=== PATIENT | male | born 1980 | race African-American/Black ===

== ENCOUNTER 2016-06-08 19:32 | Emergency (ER) | payer OTHER ==
[~2016-06-08] VITALS: Ht 185.4 cm; Wt 104.3 kg
[~2016-06-08 19:32] MED LIST: BACTRIM DS TAB1 EAC1 ORAL; HYDROCODON-ACE1 EA15 ORAL; IBUPROFEN600 MG ORAL; NORCO 5-325 TA1 EAC1 ORAL
[2016-06-08] MEDS ORDERED: IBUPROFEN600 MG ORAL (20:29)
[2016-06-08] MEDS ORDERED: BACTRIM DS TAB1 EAC1 ORAL (20:29)
[2016-06-08 20:39] VITALS: BP 107/78
--- NOTE | 2016-06-08 21:04 | Emergency Room Report ---
History of Present Illness General Chief Complaint: General Complaint Source: Patient Present Illness HPI The patient is a 35 old presenting with left knee pain which began yesterday. The patient noticed redness and swelling around the knee due to unknown cause. The patient denies prior injury to the knee. The pain is described as a 10 out of 10 dull ache and does not radiate. The patient states that he noticed a white discharge from the area after squeezing it. The patient denies F, C, N, V , numbness/tingling, NDIAYE, dizziness, difficulty ambulating. Allergies: Coded Allergies: No Known Allergies (Unverified , 02/26/14) Patient History Past Medical History: see triage record Pertinent Family History: none Reviewed Nursing Documentation: PMH: Agreed, PSxH: Agreed Nursing Documentation-PMH Past Medical History: No History, Except For Review of Systems All Other Systems: negative except mentioned in HPI Physical Exam Vital Signs Date Time Temp Pulse Resp B/P Pulse Ox O2 Delivery O2 Flow Rate FiO2 06/08/16 20:11 98.1 86 18 107/78 98 Room Air Sp02 EP Interpretation: reviewed, normal General Appearance: no apparent distress, alert, GCS 15, non-toxic Head: normocephalic, atraumatic Eyes: bilateral eye PERRL, bilateral eye normal inspection ENT: hearing grossly normal, normal pharynx, no angioedema, normal voice Neck: full range of motion, supple/symm/no masses Musculoskeletal: back normal, digits/nails normal, normal range of motion, no calf tenderness, pelvis stable, tender - TTP over soft tissue superior to L knee Neurologic: alert, oriented x3, responsive, motor strength/tone normal, sensory intact, speech normal Psychiatric: judgement/insight normal, memory normal, mood/affect normal, no suicidal/homicidal ideation Skin: well hydrated, other - There is a 3 cm in diameter erythematous region superior to left knee. There is a central scab. No fluctuance. Hot to the touch and tender Lymphatic: no adenopathy Medical Decision Making PA Attestation Dr. Agarwal is my supervising physician. Patient management was discussed with my supervising physician Diagnostic Impression: Primary Impression: Cellulitis ER Course The patient is a 35 old presenting with left knee pain which began yesterday. Ddx considered include but not limited to insect bite, contact dermatitis, eczema, cellulitis PE: vitals WNL. Afebrile NAD. There is a 3 cm in diameter erythematous region superior to left knee. There is a central scab. No fluctuance. Hot to the touch and tender. No edema to the knee. Full active range of motion. Normal gait The patient is given Motrin for pain. The patient is given a prescription for Bactrim and Motrin. Patient is given instructions to return for incision and drainage if this develops into an abscess. Patient will follow up with primary care physician Last Vital Signs Date Time Temp Pulse Resp B/P Pulse Ox O2 Delivery O2 Flow Rate FiO2 06/08/16 20:39 98.1 78 18 107/78 98 Room Air Status: improved Disposition: HOME, SELF-CARE Condition: Improved Scripts Trimethoprim/Sulfamethoxazole 160/800* (BACTRIM DS TABLET*) 1 Each Tablet 1 TAB ORAL TWICE A DAY, #14 TAB Prov: PADMA ZHAO 06/08/16 Ibuprofen* (MOTRIN*) 600 Mg Tablet 600 MG ORAL Q8H Y for For Pain, #30 TAB 0 Refills Prov: PADMA ZHAO 06/08/16 Patient Instructions: Cellulitis Additional Instructions: I discussed my findings with the patient. All questions and concerns have been answered. Treatment and medication compliance have been addressed. I advised the patient that they need to follow up with PMD in 3-5 days. Return to ED if symptoms worsen, new symptoms arise, or if needed for any reason. Patient verbalized understanding of discharge instructions. PADMA ZHAO Jun 08, 2016 21:04
== END 2016-06-08 20:39 | disposition home or self-care (01) ==
LOC: EMR 20:23
DX: L03.116 Cellulitis of left lower limb (principal)
CPT/HCPCS: 99282

== ENCOUNTER 2016-06-10 01:48 | Emergency (ER) | payer OTHER ==
[~2016-06-10] VITALS: Ht 30.5 cm; Wt 104.3 kg
[2016-06-10 02:10] VITALS: BP 107/73
[2016-06-10] MEDS ORDERED: KEFLEX500 MG ORAL (02:23)
[2016-06-10 02:43] VITALS: BP 107/73
--- NOTE | 2016-06-10 02:46 | Emergency Room Report ---
History of Present Illness General Chief Complaint: Skin Rash/Abscess Source: Patient Present Illness HPI Patient is a 35-year-old male who presented after increased left leg pain. Patient reported having increased pain to his left knee. The patient recent been seen for similar symptoms. He was started on oral Bactrim. The patient had presented for this abscesses in the past. Allergies: Coded Allergies: No Known Allergies (Unverified , 02/26/14) Physical Exam Vital Signs Date Time Temp Pulse Resp B/P Pulse Ox O2 Delivery O2 Flow Rate FiO2 06/10/16 01:57 98.1 94 16 107/73 95 Room Air Medical Decision Making Diagnostic Impression: Primary Impression: Insect bite ER Course Patient is a skin rash. Differential diagnosis included wasn't limited to cellulitis, abscess, infected insect bite, abrasion among others. Patient's benign exam and does not appear to require any further imaging or laboratory testing at this time. Patient's wound does not appear to have any abscess at this time. Patient was given additional prescription of Keflex for improved gram-positive coverage. The patient is advised to follow up with primary care doctor in 1-2 days. Patient is advised to return if any worsening condition or if any changes in status that are concerning. Last Vital Signs Date Time Temp Pulse Resp B/P Pulse Ox O2 Delivery O2 Flow Rate FiO2 06/10/16 02:10 98.1 83 16 107/73 95 Room Air Status: improved Disposition: HOME, SELF-CARE Condition: Stable Scripts Cephalexin* (KEFLEX*) 500 Mg Capsule 500 MG ORAL Q6H, #28 CAP 0 Refills Prov: Carl Hager 06/10/16 Referrals: [facility],REFERRING (PCP) Patient Instructions: Elaine Parker [id number] Carl Hager Jun 10, 2016 02:46
== END 2016-06-10 02:43 | disposition home or self-care (01) ==
LOC: EMR 02:16
DX: S80.262A Insect bite (nonvenomous), left knee, initial encounter (principal); W57.XXXA Bitten or stung by nonvenomous insect and other nonvenomous arthropods, initial encounter; Y92.9 Unspecified place or not applicable; R21 Rash and other nonspecific skin eruption
CPT/HCPCS: 99283

== ENCOUNTER 2016-12-24 07:58 | Emergency (ER) | payer OTHER ==
[~2016-12-24] VITALS: Ht 182.9 cm; Wt 95.3 kg
[~2016-12-24 07:58] MED LIST changes: +KEFLEX500 MG ORAL
[2016-12-24 08:07] VITALS: BP 132/81
[2016-12-24] MEDS ORDERED: LORazepam Inj 2mg/ml 1ml IV ONE (08:15)
[2016-12-24] MEDS ORDERED: DuoNeb 0.5-3(2.5)mg/3ml neb HHN ONE (08:15)
--- NOTE | 2016-12-24 08:21 | Emergency Room Report ---
History of Present Illness General Chief Complaint: Overdose Source: Patient Present Illness HPI Patient 36-year-old male who presented after increased redness of breath after smoking PCP. Patient gradual onset of symptoms. Patient reported feeling short of breath as well as somewhat lightheaded. The patient stated that he had been feeling like he wanted to pass out. History is limited by poor cooperation. Allergies: Coded Allergies: No Known Allergies (Unverified , 02/26/14) Patient History Past Medical History: see triage record Reviewed Nursing Documentation: PMH: Agreed, PSxH: Agreed Review of Systems All Other Systems: limited - by poor historian Physical Exam Vital Signs Date Time Temp Pulse Resp B/P Pulse Ox O2 Delivery O2 Flow Rate FiO2 12/24/16 08:03 98.8 89 19 132/81 96 Room Air Sp02 EP Interpretation: reviewed, normal General Appearance: normal inspection, well appearing, no apparent distress, alert, GCS 15 Head: atraumatic ENT: normal ENT inspection, hearing grossly normal, normal voice Neck: normal inspection, full range of motion, supple, no bony tend Respiratory: normal inspection, lungs clear, normal breath sounds, no respiratory distress, no retraction, no wheezing Cardiovascular #1: regular rate, rhythm, no edema Gastrointestinal: normal inspection, normal bowel sounds, non tender, soft, no guarding, no hernia Genitourinary: no CVA tenderness Musculoskeletal: normal inspection, back normal, normal range of motion Neurologic: normal inspection, alert, oriented x3, responsive, blintze roller III-XII nml as tested, speech normal, other - tremor Psychiatric: normal inspection, judgement/insight normal, mood/affect normal Skin: normal inspection, normal color, no rash Medical Decision Making Diagnostic Impression: Primary Impression: Drug overdose Additional Impressions: Gross hematuria Bladder mass ER Course Patient presented for shortness of breath.Differential included but was not limited to drug overdose, anemia, pneumonia, pneumothorax, myocardial infarction , pericardial effusion, congestive heart failure, acidosis. Because of complexity of patient's case laboratory testing and imaging studies were ordered. EKG interpreted by me showed normal sinus rhythm with a rate of [address] or T wave changes.Patient was given Ativan for muscle tremors. He was started on IV fluids. Lab for testing to numerous to count red blood cells a urine. CT of chest abdomen and pelvis was ordered to rule out dissection. A CT read by radiologist showed no evidence of dissection patient was noted to have what appear to be some mass in the bladder. Patient was advised outpatient followup . He was advised to stop using drugs. Labs Test 12/24/16 08:18 White Blood Count 4.8 K/UL (4.8-10.8) Red Blood Count 4.59 M/UL (4.70-6.10) Hemoglobin 12.9 G/DL (14.2-18.0) Hematocrit 40.7 % (42.0-52.0) Mean Corpuscular Volume 89 FL (80-99) Mean Corpuscular Hemoglobin 28.2 PG (27.0-31.0) Mean Corpuscular Hemoglobin Concent 31.8 G/DL (32.0-36.0) Red Cell Distribution Width 11.4 % (11.6-14.8) Platelet Count 204 K/UL (150-450) Mean Platelet Volume 8.5 FL (6.5-10.1) Neutrophils (%) (Auto) 64.6 % (45.0-75.0) Lymphocytes (%) (Auto) 24.9 % (20.0-45.0) Monocytes (%) (Auto) 9.3 % (1.0-10.0) Eosinophils (%) (Auto) 0.2 % (0.0-3.0) Basophils (%) (Auto) 1.0 % (0.0-2.0) Urine Color Red Urine Appearance Turbid Urine pH 7 (4.5-8.0) Urine Specific [place] 1.015 (1.005-1.035) Urine Protein 4+ (NEGATIVE) Urine Glucose (UA) Negative (NEGATIVE) Urine Ketones Negative (NEGATIVE) Urine Occult Blood 5+ (NEGATIVE) Urine Nitrite Negative (NEGATIVE) Urine Bilirubin Negative (NEGATIVE) Urine Urobilinogen 1 MG/DL (0.0-1.0) Urine Leukocyte Esterase 1+ (NEGATIVE) Urine RBC Tntc /HPF (0 - 0) Urine WBC 2-4 /HPF (0 - 0) Urine Squamous Epithelial Cells Occasional /LPF Urine Bacteria Occasional /HPF (NONE) Urine Mucus Many /LPF (NONE/OCC) Sodium Level 144 mEQ/L (135-145) Potassium Level 4.0 mEQ/L (3.4-4.9) Chloride Level 105 mEQ/L (98-107) Carbon Dioxide Level 27 mEQ/L (20-30) Anion Gap 12 (5-15) Blood Urea Nitrogen 13 mg/dL (7-23) Creatinine 1.2 mg/dL (0.7-1.2) Estimat Glomerular Filtration Rate > 60 mL/min (>60) Glucose Level 103 mg/dL (74-106) Calcium Level 9.2 mg/dL (8.6-10.2) Total Bilirubin 0.9 mg/dL (0.0-1.2) Aspartate Amino Transf (AST/SGOT) 19 U/L (5-40) Alanine Aminotransferase (ALT/SGPT) 15 U/L (3-41) Alkaline Phosphatase 32 U/L (40-129) Total Creatine Kinase 242 U/L (38-174) Total Protein 7.7 g/dL (6.6-8.7) Albumin 4.7 g/dL (3.5-5.2) Globulin 3.0 g/dL Albumin/Globulin Ratio 1.5 (1.0-2.7) Salicylates Level < 1 mg/dL (10-30) Urine Opiates Screen Negative (NEGATIVE) Acetaminophen Level < 10 ug/mL (10-30) Urine Barbiturates Screen Negative (NEGATIVE) Phencyclidine (PCP) Screen Positive (NEGATIVE) Urine Amphetamines Screen Negative (NEGATIVE) Urine Benzodiazepines Screen Negative (NEGATIVE) Urine Cocaine Screen Positive (NEGATIVE) Urine Marijuana (THC) Screen Positive (NEGATIVE) Serum Alcohol < 10 mg/dL Last Vital Signs Date Time Temp Pulse Resp B/P Pulse Ox O2 Delivery O2 Flow Rate FiO2 12/24/16 08:08 89 19 Room Air 12/24/16 08:07 98.8 132/81 96 Status: improved Disposition: HOME, SELF-CARE Condition: Stable Scripts Cephalexin* (KEFLEX*) 500 Mg Capsule 500 MG ORAL Q6H, #28 CAP 0 Refills Prov: Carl Hager 12/24/16 Carl Hager Dec 24, 2016 08:21
[2016-12-24 09:01] LABS: ACETAMINOPHEN < 10 ug/mL (10-30); ALANINE AMINOTRANSFERASE 15 U/L (3-41); ALBUMIN/GLOBULIN RATIO 1.5 (1.0-2.7); ALCOHOL < 10 mg/dL; ASPARTATE AMINO TRANSFERASE 19 U/L (5-40); CALCIUM 9.2 mg/dL (8.6-10.2); CARBON DIOXIDE 27 mEQ/L (20-30); CREATININE 1.2 mg/dL (0.7-1.2); GLOMERULAR FILTRATION RATE > 60 mL/min (>60); HEMOLYSIS 6; TOTAL PROTEIN 7.7 g/dL (6.6-8.7)
[2016-12-24 09:04] LABS: EOSINOPHILS % (AUTO) 0.2 % (0.0-3.0); LYMPHOCYTES % (AUTO) 24.9 % (20.0-45.0); MEAN CORPUSCULAR HEMOGLOBIN 28.2 PG (27.0-31.0); MEAN CORPUSCULAR HGB CONC 31.8 G/DL (32.0-36.0); MEAN CORPUSCULAR VOLUME 89 FL (80-99); MEAN PLATELET VOLUME 8.5 FL (6.5-10.1); MONOCYTES % (AUTO) 9.3 % (1.0-10.0); NEUTROPHILS % (AUTO) 64.6 % (45.0-75.0); PLATELET COUNT 204 K/UL (150-450); RED BLOOD COUNT 4.59 M/UL (4.70-6.10); RED CELL DISTRIBUTION WIDTH 11.4 % (11.6-14.8); WHITE BLOOD COUNT 4.8 K/UL (4.8-10.8)
[2016-12-24 09:11] LABS: ANION GAP 12 (5-15); CHLORIDE 105 mEQ/L (98-107); SODIUM 144 mEQ/L (135-145)
[2016-12-24 09:19] LABS: APPEARANCE,URINE TURBID; KETONES,URINE NEGATIVE (NEGATIVE); LEUKOCYTE ESTERASE ,URINE 1+ (NEGATIVE); NITRITE,URINE NEGATIVE (NEGATIVE); PH,URINE 7 (4.5-8.0); PROTEIN,URINE 4+ (NEGATIVE); UROBILINOGEN,URINE 1 MG/DL (0.0-1.0)
[2016-12-24 09:24] LABS: BACTERIA,URINE OCCASIONAL /HPF; MUCUS,URINE MANY /LPF (NONE/OCC); RBC,URINE TNTC /HPF (0 - 0); SQUAMOUS EPITHELIAL CELL,UR OCCASIONAL /LPF (NONE/OCC)
[2016-12-24 11:30] VITALS: BP 115/72
[2016-12-24] MEDS ORDERED: KEFLEX500 MG ORAL (12:29)
[2016-12-24 12:30] VITALS: BP 119/72
[2016-12-24 12:46] VITALS: BP 115/72
--- NOTE | 2016-12-26 09:02 | Diagnostic Imaging Report ---
Indication: Chest and abdominal pain Technique: CT angiography of the chest, abdomen, and pelvis performed with intravenous contrast material only. Axial, coronal, and sagittal images were generated. Maximum intensity projection and 3-D was also performed. Dose: Total Dose Length Product - DLP [address] Dose Index - CTDIvol(s) 8.11, 64.89, 15.27 mGy. Comparison: None Findings: Chest: The aorta is normal caliber. There is no evidence of aortic dissection. The heart is normal in size. There are no pulmonary emboli. Lungs are unremarkable. The pleural spaces normal. Abdomen and pelvis: The liver, gallbladder, spleen, pancreas, adrenal glands, and kidneys are unremarkable. The aorta is normal caliber. There is no evidence of aortic dissection. The celiac artery, superior mesenteric artery, inferior mesenteric artery, and renal arteries are unremarkable in the aortic bifurcation is normal. The iliac arteries are unremarkable. The bowel is normal. The appendix is normal. There is some intermediate density material within the bladder with a masslike configuration. This measures 6.3 x 4.8 x 3.6 cm. Seminal vesicles are normal. Impression: No evidence of aortic dissection or aortic aneurysm. Apparent mass within the bladder. Further evaluation with cystoscopy or ultrasound suggested. Otherwise negative study. The CT scanner at [facility] is accredited by the [employer] [place] [employer] and the scans are performed using protocols designed to limit radiation exposure to as low as reasonably achievable to attain images of sufficient resolution adequate for diagnostic evaluation.
--- NOTE | 2016-12-26 19:01 | Cardiology Report ---
APPROVED REPORT EKG Measurement Heart [id number] Sinus rhythm with premature supraventricular complexes Otherwise normal ECG
== END 2016-12-24 12:38 | disposition home or self-care (01) ==
LOC: EMR 08:30
DX: T50.901A Poisoning by unspecified drugs, medicaments and biological substances, accidental (unintentional), initial encounter (principal); R31.0 Gross hematuria; N32.9 Bladder disorder, unspecified; R06.02 Shortness of breath; R25.1 Tremor, unspecified
CPT/HCPCS: 36415; 71275; 74174; 80053; 80300; 80329; 81003; 82550; 85025; 93005; 94640; 94664; 96361; 96374; 99284; Q9967; 96360; J7620

== ENCOUNTER 2017-07-09 03:13 | Emergency (ER) | payer OTHER ==
[~2017-07-09] VITALS: Ht 185.4 cm; Wt 99.8 kg
[2017-07-09 03:22] VITALS: BP 124/81
[2017-07-09 04:19] LABS: APPEARANCE,URINE CLEAR; BILIRUBIN, URINE NEGATIVE (NEGATIVE); COLOR,URINE PALE YELLOW; GLUCOSE, URINE (UA) NEGATIVE (NEGATIVE); KETONES,URINE NEGATIVE (NEGATIVE); LEUKOCYTE ESTERASE ,URINE 1+ (NEGATIVE); NITRITE,URINE NEGATIVE (NEGATIVE); PH,URINE 6 (4.5-8.0); PROTEIN,URINE NEGATIVE (NEGATIVE); UROBILINOGEN,URINE NORMAL MG/DL (0.0-1.0)
[2017-07-09 04:21] LABS: BASOPHILS % (AUTO) 1.4 % (0.0-2.0); EOSINOPHILS % (AUTO) 3.1 % (0.0-3.0); HEMATOCRIT 41.5 % (42.0-52.0); HEMOGLOBIN 13.4 G/DL (14.2-18.0); LYMPHOCYTES % (AUTO) 41.6 % (20.0-45.0); MEAN CORPUSCULAR VOLUME 87 FL (80-99); MONOCYTES % (AUTO) 8.1 % (1.0-10.0); NEUTROPHILS % (AUTO) 45.9 % (45.0-75.0); PLATELET COUNT 195 K/UL (150-450); RED BLOOD COUNT 4.75 M/UL (4.70-6.10); RED CELL DISTRIBUTION WIDTH 11.2 % (11.6-14.8); WHITE BLOOD COUNT 4.6 K/UL (4.8-10.8)
[2017-07-09 04:32] LABS: ANION GAP 3 mmol/L (5-15); BLOOD UREA NITROGEN 11 mg/dL (7-18); CALCIUM 8.8 MG/DL (8.5-10.1); CARBON DIOXIDE 31 MMOL/L (21-32); CHLORIDE 108 MMOL/L (98-107); POTASSIUM 4.1 MMOL/L (3.5-5.1); SODIUM 142 MMOL/L (136-145)
[2017-07-09 04:37] LABS: ALANINE AMINOTRANSFERASE 24 U/L (12-78); ALBUMIN 3.8 G/DL (3.4-5.0); ALBUMIN/GLOBULIN RATIO 1.1 (1.0-2.7); ALKALINE PHOSPHATASE 42 U/L (46-116); ASPARTATE AMINO TRANSFERASE 13 U/L (15-37); BILIRUBIN,TOTAL 0.4 MG/DL (0.2-1.0)
--- NOTE | 2017-07-09 05:03 | Emergency Room Report ---
History of Present Illness General Chief Complaint: General Complaint Source: Patient Present Illness HPI 37-year-old male walks in with chief complaint of feeling dehydrated, states that is probably due to recent PCP use. States he has never liked water for " 20 years". States he drinks juice, Gatorade, but the taste of water makes him sick, he is requesting IV fluid hydration. Eyes alcohol abuse, other drug abuse. Denies abdominal pain, vomiting, diarrhea, fever chills. Allergies: Coded Allergies: No Known Allergies (Unverified , 02/26/14) Patient History Past Medical History: none Past Surgical History: none Pertinent Family History: none Social History: Reports: drug use Immunizations: UTD Reviewed Nursing Documentation: PMH: Agreed, PSxH: Agreed Review of Systems All Other Systems: negative except mentioned in HPI Physical Exam Vital Signs Date Time Temp Pulse Resp B/P (MAP) Pulse Ox O2 Delivery O2 Flow Rate FiO2 07/09/17 03:18 98.0 67 18 124/81 99 Room Air 98.1 Sp02 EP Interpretation: reviewed, normal General Appearance: normal inspection, well appearing, no apparent distress, alert, GCS 15, non-toxic Head: normocephalic, atraumatic Eyes: bilateral eye PERRL, bilateral eye EOMI ENT: normal ENT inspection, hearing grossly normal, normal pharynx, no angioedema, normal voice, TMs + canals normal, uvula midline, moist mucus membranes Neck: normal inspection, full range of motion, supple, thyroid normal, no meningismus, no bony tend Respiratory: normal inspection, lungs clear, normal breath sounds, no rhonchi, no respiratory distress, no retraction, no accessory muscle use, no wheezing, speaking full sentences Cardiovascular #1: regular rate, rhythm, no edema, no JVD, normal capillary refill Gastrointestinal: normal inspection, normal bowel sounds, non tender, soft, no mass, no peritonitis, non-distended, no guarding, no hernia, no pulsatile mass Genitourinary: no CVA tenderness Musculoskeletal: normal inspection, back normal, normal range of motion, no calf tenderness, pelvis stable, Gary's Sign negative Neurologic: normal inspection, alert, oriented x3, responsive, applications support analyst III-XII nml as tested, motor strength/tone normal, cerebellar normal, normal gait, speech normal Psychiatric: normal inspection, judgement/insight normal, mood/affect normal, no suicidal/homicidal ideation, no delusions Skin: normal inspection, normal color, no rash Lymphatic: normal inspection, no adenopathy Medical Decision Making Diagnostic Impression: Primary Impression: Dehydration ER Course Vital signs stable, afebrile he does not clinically appear dehydrated However he is adamant for IV fluid hydration Labs show normal H&H, no leukocytosis, no BERNICE or other metabolic abnormality Urine shows no infection, no hematuria, no ketones feels better after IV hydration with Zofran ER course: Patient has remained stable during ED stay. Disposition: Patient is to be discharged to home. Patient is instructed to follow up with their primary care doctor within 5 days. Strict return precautions discussed with patient such as fever, chills, worsening/severe pain, nausea, vomiting, which may indicate severe illness. Patient verbalizes understanding and agrees with plan. Please note that this Emergency Department Report was dictated using [employer] physician technology software, occasionally this can lead to erroneous entry secondary to interpretation by the dictation equipment Last Vital Signs Date Time Temp Pulse Resp B/P (MAP) Pulse Ox O2 Delivery O2 Flow Rate FiO2 07/09/17 03:22 98.1 67 18 124/81 99 Room Air 98.1 Status: improved Disposition: HOME, SELF-CARE Referrals: [facility]REFERRING (PCP) ELDA SULLIVAN M.D. Jul 09, 2017 05:03
[2017-07-09 05:22] VITALS: BP 127/70
[2017-07-09 05:40] VITALS: BP 127/75
== END 2017-07-09 05:40 | disposition home or self-care (01) ==
LOC: EMR 04:58
DX: E86.0 Dehydration (principal); F16.10 Hallucinogen abuse, uncomplicated
CPT/HCPCS: 36415; 80053; 81003; 85025; 96361; 96374; 99284; J2405

== ENCOUNTER 2017-11-18 05:10 | Emergency (ER) | payer OTHER ==
[~2017-11-18] VITALS: Ht 185.4 cm; Wt 86.2 kg
[2017-11-18 05:29] VITALS: BP 114/79
--- NOTE | 2017-11-18 05:43 | Emergency Room Report ---
History of Present Illness General Chief Complaint: Headache Source: Patient Present Illness HPI Is a 37-year-old male with a history of PCP and cocaine abuse. He said he was better but relapsed a few days ago when he came in combative and agitated. He came as a [place]. He presents with chief complaint of feeling dehydrated with headache and hematuria. He has a history of a bladder mass seen in December [address] scan. He said he was admitted to a previous hospital and had gross hematuria where he was admitted to the hospital for 3 days. Has sound like he had irrigation and cystoscopy done and was told that there was no tumor. He denies any fever chills but no nausea no vomiting. Intermittent hematuria with clots. No obstruction. Allergies: Coded Allergies: No Known Allergies (Unverified , 02/26/14) Patient History Past Medical History: see triage record, old chart reviewed Past Surgical History: none Pertinent Family History: none Social History: Reports: smoking, drug use Immunizations: other Reviewed Nursing Documentation: PMH: Agreed; PSxH: Agreed Nursing Documentation-PMH Past Medical History: No Stated History Review of Systems Constitutional: Reports: weakness Eye: Denies: eye pain, blurred vision ENT: Denies: ear pain, nose congestion, throat swelling Respiratory: Denies: cough, shortness of breath Cardiovascular: Denies: chest pain, palpitations Gastrointestinal: Denies: abdominal pain, diarrhea, nausea, vomiting Genitourinary: Reports: hematuria Musculoskeletal: Denies: back pain, joint pain Skin: Denies: rash Neurological: Denies: headache, numbness Endocrine: Denies: increased thirst, increased urine Hematologic/Lymphatic: Denies: easy bruising All Other Systems: negative except mentioned in HPI Physical Exam Vital Signs Date Time Temp Pulse Resp B/P (MAP) Pulse Ox O2 Delivery O2 Flow Rate FiO2 11/18/17 05:16 98.1 67 16 111/76 97 Room Air 98.1 vitals normal Sp02 EP Interpretation: reviewed, normal General Appearance: well appearing, no apparent distress, alert Head: normocephalic, atraumatic Eyes: bilateral eye PERRL, bilateral eye EOMI ENT: hearing grossly normal, normal pharynx Neck: full range of motion, supple, no meningismus Respiratory: chest non-tender, lungs clear, normal breath sounds Cardiovascular #1: regular rate, rhythm, no murmur Gastrointestinal: normal bowel sounds, non tender, no mass, no organomegaly, no bruit, non-distended Musculoskeletal: back normal, gait/station normal, normal range of motion Psychiatric: mood/affect normal Skin: warm/dry Medical Decision Making Diagnostic Impression: Primary Impression: Headache Qualified Codes: R51 - Headache Additional Impressions: Bladder mass Gross hematuria Substance abuse ER Course Patient with intermittent hematuria. No obstruction. No evidence of infection. We'll discharge home. He will need to follow-up with a urologist for cystoscopy. His headache is most likely tension in nature versus withdrawal symptoms. Last Vital Signs Date Time Temp Pulse Resp B/P (MAP) Pulse Ox O2 Delivery O2 Flow Rate FiO2 11/18/17 05:29 98.2 78 18 114/79 98 Room Air 98.2 Status: improved Disposition: HOME, SELF-CARE Condition: Stable Referrals: [facility],REFERRING (PCP) Patient Instructions: General Headache Without Cause Additional Instructions: You will need a referral from your primary care doctor to see a urologist. This is for your bladder mass and blood in your urine. You will probably need a cystoscopy. STEPHANIE FRAGA M.D. Nov 18, 2017 05:43
[2017-11-18] MEDS ORDERED: Ketorolac 30mg Inj IV ONE (05:45)
[2017-11-18 06:04] LABS: BASOPHILS % (AUTO) 1.4 % (0.0-2.0); EOSINOPHILS % (AUTO) 4.9 % (0.0-3.0); HEMATOCRIT 40.1 % (42.0-52.0); HEMOGLOBIN 12.7 G/DL (14.2-18.0); LYMPHOCYTES % (AUTO) 41.2 % (20.0-45.0); MEAN CORPUSCULAR VOLUME 86 FL (80-99); MONOCYTES % (AUTO) 8.3 % (1.0-10.0); NEUTROPHILS % (AUTO) 44.1 % (45.0-75.0); PLATELET COUNT 202 K/UL (150-450); RED BLOOD COUNT 4.66 M/UL (4.70-6.10); RED CELL DISTRIBUTION WIDTH 11.1 % (11.6-14.8); WHITE BLOOD COUNT 4.5 K/UL (4.8-10.8)
[2017-11-18 06:23] VITALS: BP 106/69
[2017-11-18 06:54] LABS: APPEARANCE,URINE CLEAR; BILIRUBIN, URINE NEGATIVE (NEGATIVE); GLUCOSE, URINE (UA) NEGATIVE (NEGATIVE); KETONES,URINE NEGATIVE (NEGATIVE); LEUKOCYTE ESTERASE ,URINE NEGATIVE (NEGATIVE); NITRITE,URINE NEGATIVE (NEGATIVE); PH,URINE 6 (4.5-8.0); PROTEIN,URINE 1+ (NEGATIVE); UROBILINOGEN,URINE 1 MG/DL (0.0-1.0)
[2017-11-18 06:54] LABS: ANION GAP 8 mmol/L (5-15); BLOOD UREA NITROGEN 10 mg/dL (7-18); CALCIUM 8.8 MG/DL (8.5-10.1); CARBON DIOXIDE 29 MMOL/L (21-32); CHLORIDE 106 MMOL/L (98-107); CREATININE 1.1 MG/DL (0.55-1.30); POTASSIUM 3.6 MMOL/L (3.5-5.1); SODIUM 142 MMOL/L (136-145)
[2017-11-18 07:02] VITALS: BP 111/66
[2017-11-18 07:04] LABS: COLOR,URINE YELLOW
[2017-11-18 08:02] VITALS: BP 97/54
--- NOTE | 2017-11-18 08:34 | Emergency Room Report ---
Physical Exam Please see the above note by Dr. Pantoja. Signed out to me pending labs and re-evaluation. Vital Signs Date Time Temp Pulse Resp B/P (MAP) Pulse Ox O2 Delivery O2 Flow Rate FiO2 11/18/17 05:16 98.1 67 16 111/76 97 Room Air 98.1 Sp02 EP Interpretation: reviewed, normal General Appearance: normal inspection, GCS 15, other - sleepy Head: normocephalic, atraumatic Eyes: bilateral eye PERRL, bilateral eye Scleral Injection ENT: moist mucus membranes, other - nasal congestion Neck: supple Respiratory: lungs clear, normal breath sounds Cardiovascular #1: regular rate, rhythm Cardiovascular #2: 2+ radial (L) Gastrointestinal: normal inspection, normal bowel sounds, non tender Musculoskeletal: back normal, digits/nails normal, gait/station normal, normal range of motion Neurologic: oriented x3, grossly normal Psychiatric: mood/affect normal Skin: normal color, warm/dry Medical Decision Making Diagnostic Impression: Primary Impression: Headache Qualified Codes: R51 - Headache Additional Impressions: Substance abuse Gross hematuria Bladder mass Nasal congestion ER Course Patient here with dehydration, alleged hematuria and headache. Patient improved with treatment. Labs with normal CBC, BMP and UA. CT from last December reviewed. Discussed treatment and follow up. Given referral for urologist but advised to follow up with his own MD. (Several diagnoses entered by Dr. Pantoja.) Patient stable for outpatient observation and treatment. Laboratory Tests Test 11/18/17 05:50 11/18/17 06:33 White Blood Count 4.5 K/UL (4.8-10.8) L Red Blood Count 4.66 M/UL (4.70-6.10) L Hemoglobin 12.7 G/DL (14.2-18.0) L Hematocrit 40.1 % (42.0-52.0) L Mean Corpuscular Volume 86 FL (80-99) Mean Corpuscular Hemoglobin 27.2 PG (27.0-31.0) Mean Corpuscular Hemoglobin Concent 31.7 G/DL (32.0-36.0) L Red Cell Distribution Width 11.1 % (11.6-14.8) L Platelet Count 202 K/UL (150-450) Mean Platelet Volume 8.6 FL (6.5-10.1) Neutrophils (%) (Auto) 44.1 % (45.0-75.0) L Lymphocytes (%) (Auto) 41.2 % (20.0-45.0) Monocytes (%) (Auto) 8.3 % (1.0-10.0) Eosinophils (%) (Auto) 4.9 % (0.0-3.0) H Basophils (%) (Auto) 1.4 % (0.0-2.0) Sodium Level 142 MMOL/L (136-145) Potassium Level 3.6 MMOL/L (3.5-5.1) Chloride Level 106 MMOL/L (98-107) Carbon Dioxide Level 29 MMOL/L (21-32) Anion Gap 8 mmol/L (5-15) Blood Urea Nitrogen 10 mg/dL (7-18) Creatinine 1.1 MG/DL (0.55-1.30) Estimate Glomerular Filtration Rate > 60 mL/min (>60) Glucose Level 99 MG/DL (74-106) Calcium Level 8.8 MG/DL (8.5-10.1) Urine Color Yellow Urine Appearance Clear Urine pH 6 (4.5-8.0) Urine Specific [place] 1.020 (1.005-1.035) Urine Protein 1+ (NEGATIVE) H Urine Glucose (UA) Negative (NEGATIVE) Urine Ketones Negative (NEGATIVE) Urine Occult Blood Negative (NEGATIVE) Urine Nitrite Negative (NEGATIVE) Urine Bilirubin Negative (NEGATIVE) Urine Urobilinogen 1 MG/DL (0.0-1.0) H Urine Leukocyte Esterase Negative (NEGATIVE) Urine RBC 0 /HPF (0 - 0) Urine WBC 0-2 /HPF (0 - 0) Urine Squamous Epithelial Cells Occasional /LPF Urine Bacteria Occasional /HPF (NONE) Urine Mucus Occasional /LPF Rhythm Strip Diag. Results EP Interpretation: yes Rhythm: NSR, no PVC's, no ectopy Last Vital Signs Date Time Temp Pulse Resp B/P (MAP) Pulse Ox O2 Delivery O2 Flow Rate FiO2 11/18/17 08:44 98.2 75 17 101/58 100 Room Air 98.2 Status: improved Disposition: HOME, SELF-CARE Condition: Stable Scripts Chlorpheniramine Maleate (CHLOR-TRIMETON) 4 Mg Tablet 4 MG PO Q6HR, #10 TAB Prov: Joey Agarwal M.D. 11/18/17 Ibuprofen* (MOTRIN*) 600 Mg Tablet 600 MG ORAL Q6H PRN for For Pain, #20 TAB Prov: Joey Agarwal M.D. 11/18/17 Multivit&Min/Iron Fm/Folic Acd (MONOCAPS TABLET) 1 Each Tablet 1 EACH PO DAILY, #30 TAB Prov: Joey Agarwal M.D. 11/18/17 Referrals: [facility]ERR[facility] (PCP) Patient Instructions: General Headache Without Cause, Hematuria, Adult Additional Instructions: You will need a referral from your primary care doctor to see a urologist. This is for your bladder mass and blood in your urine. You will probably need a cystoscopy. Joey Agarwal M.D. Nov 18, 2017 08:34
[2017-11-18] MEDS ORDERED: IBUPROFEN600 MG ORAL (08:35)
[2017-11-18] MEDS ORDERED: [UNRECOGNIZED DRUG - OTHER] PO (08:35)
[2017-11-18] MEDS ORDERED: CHLOR-TRIMETON4 MG PO (08:38)
[2017-11-18 08:44] VITALS: BP 101/58
== END 2017-11-18 09:00 | disposition home or self-care (01) ==
LOC: EMR 05:36
DX: R51 Headache (principal); N32.9 Bladder disorder, unspecified; R31.0 Gross hematuria; F19.10 Other psychoactive substance abuse, uncomplicated
CPT/HCPCS: 36415; 80048; 81003; 85025; 96361; 96374; 99284; J1885; 96360; 96365